=== PATIENT | female | born 2000 | race Caucasian/White ===

== ENCOUNTER 2023-12-11 08:08 | Emergency (ER) | payer SELFPAY ==
[~2023-12-11] VITALS: Ht 152.4 cm; Wt 80.3 kg
[2023-12-11 08:11] VITALS: BP 117/71; PULSE 88; RESP 18; TEMP 97.1; O2SAT 100
[2023-12-11] MEDS: IBUPROFEN 600 MG TAB PO ONE (09:14)
[2023-12-11] MEDS: ACETAMINOPHEN EXTRA STRENGTH 500 MG TAB PO ONE (09:15)
[2023-12-11 09:40] VITALS: BP 116/72; PULSE 78; RESP 16; TEMP 98; O2SAT 100
== END 2023-12-11 09:40 ==
LOC: MED 08:08
DX: S20.312A Abrasion of left front wall of thorax, initial encounter (principal); S00.81XA Abrasion of other part of head, initial encounter; S30.811A Abrasion of abdominal wall, initial encounter; V49.88XA Car occupant (driver) (passenger) injured in other specified transport accidents, initial encounter; Y93.89 Activity, other specified; Y92.89 Other specified places as the place of occurrence of the external cause; Y99.8 Other external cause status
CPT/HCPCS: 99283